=== PATIENT | male | born 1970 | race Caucasian/White ===

== ENCOUNTER 2021-12-25 10:05 | Emergency (ER) | payer OTHER, SELFPAY ==
[2021-12-25 10:17] VITALS: BP 123/81; PULSE 61; RESP 16; TEMP 36.7; O2SAT 97
--- NOTE | 2021-12-25 10:31 | ED.GENADULT ---
HPI - General Adult General Chief complaint: Extremity Problem,Nontraumatic Stated complaint: Rt Foot infection,Rt Ear Irritation Source: patient Mode of arrival: ambulatory Limitations: no limitations History of Present Illness HPI narrative: Patient is a 51-year-old male who presents to the [facility] via POV for evaluation of a skin problem located on right fourth toe that began 2 days ago. Additionally, he reports swelling, erythema, warmth, tenderness, and drainage. He states he was able to squeeze out green pus from affected toe. He cut his toenails 3 days ago and believes this to be the cause of his symptoms. He also reports right ear pain that has been present for 3 days. Denies taking OTC meds for all symptoms. Does not identify alleviating/aggravating factors. History of MRSA. Related Data Allergies Allergy/AdvReac Type Severity Reaction Status Date / Time No Known Allergies Allergy Verified 12/25/21 10:16 Review of Systems Review of Systems: Denies fever, chills, sweats, change in appetite, poor p.o. intake, malaise, headache, rhinorrhea, sinus problems, tinnitus, vertigo, lightheadedness, hearing loss, muffled hearing, ear drainage, nausea, vomiting, sore throat, cough, shortness of breath, lymphadenopathy, paresthesias, cyanosis, decreased range of motion, loss of sensation, chest pain, heart palpitations, and heart murmur. [facility] Family History Family History Other Carcinoma of colon Diabetes mellitus Family history of malignant neoplasm of breast in first degree relative Social History Social History Smoking status: Never smoker Alcohol intake: never Comments I have reviewed and agree with the patient's past medical, surgical, social, and family hx as documented by the RN. There is no relevant family history pertinent to the presenting complaint. Exam Narrative: GENERAL: Well-appearing, well-nourished, and in no acute distress. HEAD: Normocephalic, atraumatic. No sinus tenderness or facial swelling appreciated. EYES: PERRLA and EOMI. No evidence of erythema, swelling, or drainage. ENT: Right ear canal with moderate erythema and mild swelling consistent with otitis externa. Left external ear canal normal. Bilateral TMs are normal.No TM perforation. Nares clear, no rhinorrhea or epistaxis. Bilateral turbinates without erythema/ swelling. Mucous membranes moist and pink. Uvula is midline without erythema and swelling. No evidence of cobblestoning, erythema, swelling, exudates, peritonsillar abscess, tenting, or drooling. Breath odor and voice normal. NECK: Supple. No Lymphadenopathy or nuchal rigidity appreciated. CHEST: Bilateral lung pollard are clear to auscultation. No respiratory distress. No evidence of cough or pleuritic cp upon examination. HEART: Regular rate and rhythm. No murmur, gallop, or rub heard. EXTREMITIES: Normal range of motion. Sensation intact. no edema. SKIN: Warm, dry. Mild cellulitis noted to fourth right toe. No evidence of abscess, streaking, induration, injury, bleeding, or drainage. NEURO: No focal deficits. Alert and oriented x3. Course Course Level of Care: Express Care Visit Vital Signs Vital signs: Vital Signs Temperature 98.0 F 12/25/21 10:17 Pulse Rate 61 12/25/21 10:17 Respiratory Rate 16 12/25/21 10:17 Blood Pressure 123/81 12/25/21 10:17 Pulse Oximetry 97 12/25/21 10:17 Temperature 98.0 F 12/25/21 10:17 Pulse Rate 61 12/25/21 10:17 Respiratory Rate 16 12/25/21 10:17 Blood Pressure 123/81 12/25/21 10:17 Pulse Oximetry 97 12/25/21 10:17 reviewed Medical Decision Making Differential Diagnosis Differential Diagnosis: Otitis externa, barotrauma, eustachian tube dysfunction, AOM, OME, herpes zoster infection, acute mastoiditis, malignancy, contact/allergic dermatitis, atopic dermatitis, psoriasi
== END 2021-12-25 10:50 | disposition home or self-care (01) ==
PROVIDERS: Emergency Provider Nurse Practitioner Family
DX: L03.031 Cellulitis of right toe (principal); H60.501 Unspecified acute noninfective otitis externa, right ear
CPT/HCPCS: 99213; G0463

== ENCOUNTER 2022-07-13 10:20 | Emergency (ER) | payer OTHER, SELFPAY ==
[2022-07-13 11:28] VITALS: BP 128/79; PULSE 66; RESP 16; TEMP 36.8; O2SAT 99
--- NOTE | 2022-07-13 12:11 | ED.URI ---
HPI - URI/Sore Throat General Chief Complaint: Upper Respiratory Infection Stated Complaint: cough,headache Time Seen by Provider: 07/13/22 12:12 Source: patient Mode of arrival: ambulatory Limitations: no limitations History of Present Illness HPI Narrative: 51-year-old male presents with complaint of nasal congestion, postnasal drainage, cough and sore throat. Reports that cough is worse at night. Sore throat is worse in the morning. Not taking any [id number] medications to treat her symptoms symptoms. Has had symptoms for 2-3 days. Afebrile. Wants COVID test prior to returning to work. All systems reviewed and negative except as noted above. Related Data Home Medications Medication Instructions Recorded Confirmed No Home Medications 07/13/22 07/13/22 Allergies Allergy/AdvReac Type Severity Reaction Status Date / Time No Known Allergies Allergy Verified 07/13/22 12:10 Review of Systems Review of Systems: CONSTITUTIONAL: Denies fever, chills, or sweats. EYES: Denies visual changes, redness, or discharge. ENT: Reports rhinorrhea, congestion, sore throat. Denies otalgia. CARDIOVASCULAR: Denies chest pain, palpitations, or edema. RESPIRATORY: reports cough. Denies dyspnea. GASTROINTESTINAL: Denies abdominal pain, nausea, vomiting, or diarrhea. GENITOURINARY: Denies dysuria or hematuria. SKIN: Denies rash or itching. MUSCULOSKELETAL: Denies back pain, joint pain, or myalgia. NEUROLOGIC: Denies headache, numbness, or weakness. PSYCHIATRIC: Denies anxiety or depression. All other systems reviewed are negative, except as documented in HPI. [facility] Family History Family History Other Carcinoma of colon Diabetes mellitus Family history of malignant neoplasm of breast in first degree relative Social History Social History Smoking status: Never smoker Alcohol intake: never Comments At time of signature, agree with nursing past medical, surgical, social and family history. There is no relevant family history pertinent to the presenting complaint. Exam Narrative: GENERAL: This is a well-nourished, well-developed patient, in no apparent distress. HEAD: normocephalic, atraumatic. EYES: PERRL. Sclera clear/white. Vision is grossly intact. EARS: External ears normal, auditory canals clear and without drainage, TMs normal without perforation. Hearing grossly intact. NOSE: External nose normal with clear nasal drainage, mild congestion. THROAT: Mucous membranes moist, Mild erythema to posterior pharynx with clear postnasal drainage. NECK: Neck supple, non-tender without lymphadenopathy, masses or thyromegaly. CARDIOVASCULAR: Regular rate and rhythm without murmurs, gallops, or rubs. RESPIRATORY: Clear to auscultation. Breath sounds equal bilaterally. No wheezes, rales, or rhonchi. GASTROINTESTINAL: Abdomen soft, non-tender, nondistended. Bowel sounds are active. No hepato-splenomegaly, or palpable masses. No guarding. SKIN: warm, Dry, intact with no suspicious lesions or rash, good texture and turgor. NEURO: awake, alert, and oriented to person, place and time. There were no obvious focal neurologic abnormalities. EXTREMITIES: No joint tenderness, effusion, or edema noted. Course Course Level of Care: Express Care Visit Vital Signs Vital signs: Vital Signs Temperature 36.8 C 07/13/22 11:28 Pulse Rate 66 07/13/22 11:28 Respiratory Rate 16 07/13/22 11:28 Blood Pressure 128/79 07/13/22 11:28 Pulse Oximetry 99 07/13/22 11:28 Oxygen Delivery Room Air 07/13/22 11:28 Temperature 36.8 C 07/13/22 11:28 Pulse Rate 66 07/13/22 11:28 Respiratory Rate 16 07/13/22 11:28 Blood Pressure 128/79 07/13/22 11:28 Pulse Oximetry 99 07/13/22 11:28 Oxygen Delivery Room Air 07/13/22 11:28 Reviewed MDM - URI/Sore Throat MDM Narrative Medic
== END 2022-07-13 12:25 | disposition home or self-care (01) ==
PROVIDERS: Emergency Provider Nurse Practitioner Family
DX: J01.90 Acute sinusitis, unspecified (principal); B97.89 Other viral agents as the cause of diseases classified elsewhere; Z20.822 Contact with and (suspected) exposure to COVID-19
CPT/HCPCS: 87081; 87426; 87880; 99213; C9803; G0463

== ENCOUNTER 2023-05-03 10:04 | Emergency (ER) | payer OTHER, SELFPAY ==
--- NOTE | ~2023-05-03 | US_ITS ---
EXAMINATION: US venous doppler [facility] DATE: 05/03/2023 12:52 INDICATION: Left lower limb pain and swelling. TECHNIQUE: Grayscale ultrasound images without and with compression and Doppler ultrasound images of the left lower extremity veins were obtained. COMPARISON: None. FINDINGS: The visualized portions of left common femoral vein, profunda (deep) femoral vein, femoral vein, and greater saphenous vein outflow are patent. There is thrombus in left popliteal and posterior tibial v eins. IMPRESSION: 1. Deep vein thrombosis involving left popliteal and posterior tibial veins. Reviewed, dictated and finalized at location A.
[2023-05-03 10:08] VITALS: BP 121/72; PULSE 70; RESP 18; TEMP 36.5; O2SAT 96
--- NOTE | 2023-05-03 11:50 | ED.LOWEXIN ---
HPI - Extremity Injury (Lower) General Chief Complaint: Extremity Injury, Lower Stated Complaint: Left Leg pain/swelling Time Seen by Provider: 05/03/23 11:00 Source: patient Mode of arrival: ambulatory Limitations: no limitations History of Present Illness HPI Narrative: This is a 52 year old male that presents to the ER for left leg pain and swelling. Ongoing over the last 5 days. Reports some redness to the lower leg and calf pain. No recent injuries, trauma, or surgery. He does have history of chronic low back pain for which he receives injections. No history of blood clots. Reports some chills last night. Denies fever, chest pain or shortness of breath. Related Data Allergies Allergy/AdvReac Type Severity Reaction Status Date / Time No Known Allergies Allergy Verified 05/03/23 10:50 Review of Systems Review of Systems: CONSTITUTIONAL: Denies fever CARDIOVASCULAR: Reports edema. Denies chest pain RESPIRATORY: Denies dyspnea. SKIN: Reports redness MUSCULOSKELETAL: Reports back pain, joint pain, and myalgia. NEUROLOGIC: Denies numbness, or weakness. All systems reviewed & are unremarkable except as noted in HPI and below PMFSH Past Medical History Medical History (Updated 05/03/23 @ 14:10 by Kia Maloney PA-C) No active medical problems Family History Family History Other Carcinoma of colon Diabetes mellitus Family history of malignant neoplasm of breast in first degree relative Social History Social History (Updated 05/03/23 @ 11:56 by Kia Maloney PA-C) Smoking status: Never smoker Alcohol intake: never Substance use: never Exam Narrative: GENERAL: Well-appearing, well-nourished, and in no acute distress. HEAD: Normocephalic, atraumatic. EYES: EOMI. CHEST: Clear to auscultation. No respiratory distress. No wheezes rales or rhonchi HEART: Regular rate and rhythm. No murmur heard. Normal peripheral pulses. BACK: No midline spinal tenderness EXTREMITIES: Normal range of motion. No edema. Strength equal in bilateral upper and lower extremities (5/5). Mild non-pitting edema to the left lower extremity. Normal DP pulses. Normal sensation SKIN: Warm, dry, no rash. NEURO: No focal deficits. Alert and oriented x3. PSYCH: Normal mood and affect Course Course Emergency Course: Patient and family updated on work-up and agree with plan of care Vital Signs Vital signs: Vital Signs Temperature 97.7 F 05/03/23 10:08 Pulse Rate 70 05/03/23 10:08 Respiratory Rate 18 05/03/23 10:08 Blood Pressure 121/72 05/03/23 10:08 Pulse Oximetry 96 05/03/23 10:08 Oxygen Delivery Room Air 05/03/23 10:08 Temperature 97.7 F 05/03/23 10:08 Pulse Rate 70 05/03/23 10:08 Respiratory Rate 18 05/03/23 10:08 Blood Pressure 121/72 05/03/23 10:08 Pulse Oximetry 96 05/03/23 10:08 Oxygen Delivery Room Air 05/03/23 10:08 MDM - Extremity Injury (Lower) MDM Narrative Medical decision making narrative: Patient presents to the emergency department for left leg pain and swelling. Ongoing over the last couple of days. He is afebrile and nontoxic-appearing. He denies any chest pain or shortness of breath. He is not tachycardic. Oxygen saturation is normal on room air. CBC is without leukocytosis. Sed rate is not elevated. CRP mildly elevated. Left lower extremity venous Doppler shows DVT in the left popliteal and posterior tibial veins. Patient and family updated on work-up. He will be started on anticoagulation. He is to follow-up with his primary provider. He was given warnings to return to the ER Differential Diagnosis Differential diagnosis: Likely other (DVT, cellulitis) Lab Data Attestation: I reviewed the patient's lab results. 05/03/23 12:06 05/03/23 12:06 Labs: Lab Results 05/03/23 05/03/23 Range/Units 12:06 12:11 WBC 7.5 (4.5-10.0) K/mm3 RBC 5.3
[2023-05-03 12:18] LABS: Basophils Absolute Auto 0.1 K/mm3 (0.0-0.1); Basophils Percent Auto 0.7 % (0.2-1.2); Eosinophils Absolute Auto 0.2 K/mm3 (0-0.3); Eosinophils Percent Auto 2.4 % (0-4.4); Hemoglobin 15.8 g/dL (14.0-18.0); Immature Granulocyte Absolute 0.01 K/mm3 (0.00-0.031); Immature Granulocyte Percent A 0.1 % (0-0.5); Lymphocytes Percent Auto 16.1 % (18.3-44.2); Mean Corpuscular HGB Conc 33.6 g/dl (32-36); Mean Corpuscular Hemoglobin 29.5 pg (26-34); Mean Corpuscular Volume 87.7 fl (80-100); Mean Platelet Volume 10.1 fl (7.4-10.4); Monocytes Absolute Auto 0.7 K/mm3 (0.1-0.6); Monocytes Percent Auto 8.7 % (2.6-8.5); Neutrophils Absolute Auto 5.4 K/mm3 (1.3-6.7); Platelet Count Result 215 k/mm3 (150-375); Red Blood Count 5.36 M/mm3 (4.6-6.20); Red Cell Distribution Width 12.2 % (11.5-14.5); White Blood Count 7.5 K/mm3 (4.5-10.0)
[2023-05-03 12:27] LABS: Prothrombin Time 13.6 Seconds (11.1-14.7)
[2023-05-03 12:28] LABS: Partial Thromboplastin Time 30.2 SECONDS (22.3-36.8)
[2023-05-03 12:34] LABS: Anion Gap 8 mmol/L (8-16); Blood Urea Nitrogen 18 mg/dL (9-20); CRP 2.5 mg/dL (<1.0); Calcium 9.3 mg/dL (8.4-10.2); Carbon Dioxide 26 mmol/L (22-30); Chloride 105 mmol/L (98-107); Estimated CRCL calculation 81 ml/min; Estimated Glomerular Filt Rate > 60; Glucose 98 mg/dL (65-110); Potassium 4.3 mmol/L (3.4-5.0); Sodium 139 mmol/L (137-145)
[2023-05-03 12:50] LABS: Erythrocyte Sedimentation Rate 19 mm/hr (0-20)
[2023-05-03] MEDS: HYDROcodone/acetaminophen (*CRX) 5-325 MG TABLET 1 TAB PO (13:57)
[2023-05-03 14:18] VITALS: PULSE 72; RESP 18; O2SAT 98
== END 2023-05-03 14:19 | disposition home or self-care (01) ==
PROVIDERS: Emergency Provider Physician Assistant
DX: I82.432 Acute embolism and thrombosis of left popliteal vein (principal); I82.442 Acute embolism and thrombosis of left tibial vein
CPT/HCPCS: 36415; 80048; 85025; 85610; 85652; 85730; 86140; 93971; 99284; A9270

== ENCOUNTER 2023-07-16 12:29 | Emergency (ER) | payer OTHER, SELFPAY ==
--- NOTE | ~2023-07-16 | XR_ITS ---
EXAMINATION: XR lumbar spine min 4V DATE: 07/16/2023 13:24 INDICATION: Low back pain TECHNIQUE: Anteroposterior and lateral views of the lumbar spine, and cone-down lateral view of the l umbosacral junction were obtained. COMPARISON: None. FINDINGS: There are 3 mm of retrolisthesis of L5 on S1. The vertebral body heights are maintained. Th ere is severe loss of intervertebral disc space height at L3-4, L4-5, and L5-S1. There is mild loss o f disc space height at L1-2 and L2-3. Small degenerative osteophytes project from the anterior endpla evelyn of multiple vertebral bodies. There is mild facet joint osteoarthritis of the lower lumbar spine. IMPRESSION: 1. Moderate to severe lumbar spondylosis from L3-4 through L5-S1. Reviewed, dictated and finalized at location A. PER CUTTER
--- NOTE | ~2023-07-16 | XR_ITS ---
EXAMINATION: XR thoracic spine 3V DATE: 07/16/2023 13:24 INDICATION: Chronic back pain TECHNIQUE: AP, lateral and lateral swimmer's views of the thoracic spine were obtained. COMPARISON: None. FINDINGS: Bone alignment is normal. There is no fracture. There is moderate loss of intervertebral di sc space height at multiple levels in the thoracic spine. Small degenerative osteophytes project from the anterior endplates of multiple vertebral bodies. IMPRESSION: 1. Mild thoracic spondylosis without acute findings. Reviewed, dictated and finalized at location A. CORE ASSEMBLER
[2023-07-16 12:37] VITALS: BP 118/82; PULSE 50; RESP 18; TEMP 36.3; O2SAT 100
--- NOTE | 2023-07-16 13:09 | ED.BACK ---
HPI - Back Pain/Injury General Chief Complaint: Back Pain/Injury Stated Complaint: Back Pain Time Seen by Provider: 07/16/23 12:32 Source: patient Mode of arrival: ambulatory Limitations: no limitations History of Present Illness HPI Narrative: 52-year-old male presents to [facility] complains of mid and lower back pains for the past 3-4 days. Patient denies recent injury but reports that he has been doing a large amount of strenuous work at his job. Patient reports that he has been taking leftover Tylenol codeine with minimal relief. Patient reports that he was placed on Eliquis on May 03 after having a blood clot to his left lower leg. Patient reports he has a long history of back pain. Reports that he has done physical therapy in the past. Patient reports that he also sees a chiropractor but has not seen him since this exacerbation of pain. Patient reports that he is seeing pain management at the [place]. Patient reports that he has also been using [id number] rubs with little relief. Patient denies bowel or bladder problems. Patient denies fever, body aches, chills, nausea vomiting or diarrhea. Patient reports that he has Tizanidine at the home has not been taking medication and reports that he is almost out of the medication MD elicited complaint: back pain Pertinent past history: prior back pain Onset (ago): day(s) (3) Similar Symptoms Previously: Yes Location: lumbar spine and thoracic spine Associated symptoms: denies other symptoms Treatments prior to arrival: acetaminophen Related Data Allergies Allergy/AdvReac Type Severity Reaction Status Date / Time No Known Allergies Allergy Verified 07/16/23 12:48 Review of Systems Constitutional: Constitutional: Denies chills, Denies fatigue, Denies fever(s) and Denies weakness ENT: Denies vertigo, Denies dizziness, Denies epistaxis and Denies nasal congestion Cardiovascular: Cardiovascular: Denies chest pain Respiratory: Respiratory: Denies cough, Denies dyspnea and Denies wheezing Gastrointestinal: Gastrointestinal: Denies diarrhea, Denies nausea and Denies vomiting Musculoskeletal: Musculoskeletal: Reports back pain, Denies myalgias, Denies arthralgias and Denies joint swelling Integumentary/Breasts: Skin/Breast: Denies rash Neurologic: Denies dizziness, Denies syncope and Denies headache(s) [facility] Past Medical History Medical History No active medical problems Family History Family History Other Carcinoma of colon Diabetes mellitus Family history of malignant neoplasm of breast in first degree relative Social History Social History Smoking status: Never smoker Alcohol intake: never Substance use: never Comments At time of signature, I agree with nursing past medical, surgical, social and family history. There is no relevant family history pertinent to the presenting complaint. Exam Const: General: healthy appearing and no acute distress Nutritional Appearance: well nourished Orientation/consciousness: patient oriented x3 Limitations: no limitations HENMT: Head: normal to inspection Eyes: Conjunctivae: conjunctivae normal Neck: Neck: normal visual inspection Resp: Effort & Inspection: normal respiratory effort and not labored Auscultation: clear to auscultation bilaterally, no crackles, no rales and no rhonchi Cardio: Rate: regular rate Rhythm: regular rhythm Heart sounds: no murmurs Back/Spine/Pelvis: Back: no CVA tenderness Other: No areas of swelling, erythema, bruising or signs infection noted. No rash noted. Full range of motion noted. Gait is within normal limits. No footdrop noted Skin: General skin exam: normal color Rashes: no rashes Neuro: General: patient oriented x3, moves all extremities, no meningeal signs and no focal motor defic
== END 2023-07-16 13:54 | disposition home or self-care (01) ==
PROVIDERS: Emergency Provider Nurse Practitioner Family
DX: M54.6 Pain in thoracic spine (principal)
CPT/HCPCS: 72072; 72110; 99213; G0463

== ENCOUNTER 2024-09-12 23:38 | Emergency (ER) | payer OTHER, SELFPAY ==
--- NOTE | ~2024-09-12 | XR_ITS ---
CHEST RADIOGRAPH CLINICAL HISTORY: infection . COMPARISON: 06/13/2017 TECHNIQUE: Single portable view of the chest. FINDINGS The cardiomediastinal silhouette is unremarkable. The lungs are clear. Visualized osseous structures and soft tissues are unremarkable. IMPRESSION: No focal infiltrate or effusion. Reviewed, dictated and finalized at location A. ATING SCREEN OPERATOR
[2024-09-12 23:37] VITALS: BP 106/50; PULSE 65; RESP 15; TEMP 36.4; O2SAT 98
[2024-09-13] MEDS: SODIUM CHLORIDE 0.9% IV 1,000 ML 999 ML IV CONT ×2 (00:05→02:15)
[2024-09-13] MEDS: ACETAMINOPHEN 500 MG TABLET 1000 MG PO (00:08)
[2024-09-13 00:09] LABS: Basophils Absolute Auto 0.1 K/mm3 (0.0-0.1); Basophils Percent Auto 0.9 % (0.2-1.2); Eosinophils Absolute Auto 0.3 K/mm3 (0-0.3); Eosinophils Percent Auto 3.7 % (0-4.4); Hematocrit 43.2 % (42.0-52.0); Hemoglobin 15.1 g/dL (14.0-18.0); Immature Granulocyte Absolute 0.03 K/mm3 (0.00-0.031); Immature Granulocyte Percent A 0.4 % (0-0.5); Lymphocytes Absolute Auto 2.61 K/mm3 (0.9-3.2); Lymphocytes Percent Auto 31.8 % (18.3-44.2); Mean Corpuscular Volume 85.9 fl (80-100); Mean Platelet Volume 10.3 fl (7.4-10.4); Monocytes Absolute Auto 0.7 K/mm3 (0.1-0.6); Monocytes Percent Auto 8.8 % (2.6-8.5); Neutrophils Absolute Auto 4.5 K/mm3 (1.3-6.7); Neutrophils Percent Auto 54.4 % (45.5-73.1); Platelet Count Result 274 k/mm3 (150-375); Red Blood Count 5.03 M/mm3 (4.6-6.20); Red Cell Distribution Width 12.3 % (11.5-14.5); White Blood Count 8.2 K/mm3 (4.5-10.0)
--- NOTE | 2024-09-13 00:12 | ED_ITS ---
HPI - Arrhythmia/Palpitations General Chief Complaint: Arrhythmia/Palpitations Stated Complaint: palpations Time Seen by Provider: 09/12/24 23:42 History of Present Illness HPI narrative: Patient is a 53-year-old male who presents to the emergency department this evening complaining of chest pain, nausea, vomiting, diarrhea and headache which started this evening around 2300. Patient also complains of palpitations. Patient states that he has a history of frequent PVCs and was supposed to be wearing an event monitor that his music industry intern out of [facility] placed him on, however, patient took it off and sent it back to the music industry intern a few days ago after wearing it for approximately 10-14 days because it was uncomfortable to wear per who is present at bedside with the patient. Patient has had a long history of recurrent PVCs and was placed on metoprolol for it, however, patient is septic and metoprolol 1 month ago as it was dropping his blood pressure and heart rate. Patient states that his heart rate usually runs in the 50s and has always been that way. States that all his symptoms started this evening and prior to this denies any recent illness and states that he was feeling just fine. Patient was administered 4 mg of IV Zofran by EMS prior to arrival, however, patient states that he still nauseous. Patient has not had any vomiting episodes for EMS and in the emergency department. Denies any abdominal pain. Denies any recent falls or trauma. No additional symptoms or concerns at this time. Related Data Allergies Allergy/AdvReac Type Severity Reaction Status Date / Time No Known Allergies Allergy Verified 07/16/23 12:48 Review of Systems 2 Review of Systems: All systems are reviewed and are negative unless stated otherwise in the HPI. [facility] Past Medical History Medical History No active medical problems Family History Family History Other Carcinoma of colon Diabetes mellitus Family history of malignant neoplasm of breast in first degree relative Social History Social History Smoking status: Never smoker Alcohol intake: never Substance use: never Exam 2 Narrative: General: Alert, awake, afebrile, in no acute distress. HEENT: PERRL, no rhinorrhea, no post nasal drip, oropharynx clear. Neck: Trachea midline, no JVD, no lymphadenopathy. Cardiovascular: Regular rate and rhythm, no murmurs, rubs or gallops, no peripheral edema. Respiratory: Clear to auscultation bilaterally, no tachypnea, no wheezing, no rhonchi, no rubs, no respiratory distress. Abdomen: Soft, nontender, nondistended, no rebound, no guarding, no peritoneal signs. Musculoskeletal: No joint swelling or deformity, normal muscle tone. Skin: No rashes or petechia, no signs of infection. Psychiatric: Alert and oriented, normal behavior and judgment for situation. Neurological: Alert and oriented to person, place, and time. Follows all commands. No focal deficits, speech is clear and fluent. Course Vital Signs Vital signs: Vital Signs Temperature 97.5 F L 09/12/24 23:37 Pulse Rate 65 09/12/24 23:37 Respiratory Rate 15 09/12/24 23:37 Blood Pressure 106/50 L 09/12/24 23:37 Pulse Oximetry 98 09/12/24 23:37 Oxygen Delivery Room Air 09/12/24 23:37 Temperature 97.5 F L 09/12/24 23:37 Pulse Rate 65 09/12/24 23:37 Respiratory Rate 15 09/12/24 23:37 Blood Pressure 106/50 L 09/12/24 23:37 Pulse Oximetry 98 09/12/24 23:37 Oxygen Delivery Room Air 09/12/24 23:37 MDM - Arrhythmia/Palpitations MDM Narrative Medical decision making narrative: The patient was evaluated by myself in the emergency department. History is obtained from patient who is an independent historian and physical exam was performed. External medical records were reviewed at this time. IV was established and pertinent tests were ordered. Patient was administered 2 L IV fluid bolus with normal saline. Patient states that he is still nauseous, however, he declined any additional nausea medications and declined Tylenol for headache. EKG was obtained which revealed sinus bradycardia at a rate of 58 beats per minute, no evidence of heart block, no evidence of acute ischemia. EKG was independently interpreted by me and is currently pending official cardiology read. Laboratory results obtained revealing no acute process. Viral swabs noted to be negative for COVID/influenza/RSV. Two sets of troponins were obtained and both noted to be negative. Imaging studies obtained included CXR which was independently interpreted by me revealing no acute cardiopulmonary process, which is pending final radiology interpretation. Differential diagnosis considerations include acute viral syndrome gastroenteritis, dehydration, electrolyte derangements, arrhythmia. Comorbidities impacting this visit include history of sinus bradycardia and frequent PVCs. I have evaluated and discussed social determinants of health with the patient that could potentially impact subsequent diagnosis and treatment plans. At this time, shared medical decision-making with patient regarding transfer to [facility] or his music industry intern is for his palpitations/frequent PVCs, however, patient declined transferred stating that he wants to go home as he feels better and will follow-up with his music industry intern as an outpatient. On repeat assessment of the patient, reevaluation revealed that the patient is doing well and is in no acute distress. Patient symptoms have improved since he arrived to our emergency department. Repeat vital signs were all reviewed and noted to be stable with a repeat blood pressure 119/51 mmHg. Differential diagnosis and treatment plan were discussed with the patient at bedside. Patient agrees with discussion and after shared medical decision making agrees with discharge. All questions were answered to the patient's satisfaction. Patient will follow up with his music industry intern in 2-3 days. Patient was provided with strict return precautions and instructed to return to the emergency department if any new or worsening symptoms develop. The patient was discharged in stable condition. Lab Data 09/13/24 00:01 09/13/24 00:01 Labs: Lab Results 09/13/24 09/13/24 Range/Units 00:01 01:16 WBC 8.2 (4.5-10.0) K/mm3 RBC 5.03 (4.6-6.20) M/mm3 Hgb 15.1 (14.0-18.0) g/dL Hct 43.2 (42.0-52.0) % MCV 85.9 (80-100) fl MCH 30.0 (26-34) pg MCHC 35.0 (32-36) g/dl RDW 12.3 (11.5-14.5) % Plt Count 274 (150-375) k/mm3 MPV 10.3 (7.4-10.4) fl Immature Gran % (Auto) 0.4 (0-0.5) % Neut % (Auto) 54.4 (45.5-73.1) % Lymph % (Auto) 31.8 (18.3-44.2) % [place] % (Auto) 8.8 H (2.6-8.5) % Eos % (Auto) 3.7 (0-4.4) % Baso % (Auto) 0.9 (0.2-1.2) % Lymph # (Auto) 2.61 (0.9-3.2) K/mm3 [place] # (Auto) 0.7 H (0.1-0.6) K/mm3 Eos # (Auto) 0.3 (0-0.3) K/mm3 Baso # (Auto) 0.1 (0.0-0.1) K/mm3 Abs Immat Gran (auto) 0.03 (0.00-0.031) K/mm3 Absolute Neuts (auto) 4.5 (1.3-6.7) K/mm3 Absolute Nucleated RBC 0.000 (0.0-0.012) K/mm3 Nucleated RBC % 0.0 (0.0-0.2) % PT 15.1 H (11.1-14.7) Seconds INR 1.2 APTT 25.6 (22.3-36.8) Seconds Sodium 139 (137-145) mmol/L Potassium 3.5 (3.4-5.0) mmol/L Chloride 105 (98-107) mmol/L Carbon Dioxide 23 (22-30) mmol/L Anion Gap 11 (4-12) mmol/L BUN 23 H (9-20) mg/dL Creatinine 1.25 (0.7-1.3) mg/dL Estim Creat Clear Calc 72 ml/min Estimated GFR > 60 (59 - ) Glucose 135 H (65-110) mg/dL Calcium 9.3 (8.4-10.2) mg/dL Magnesium 2.2 (1.6-2.3) mg/dL Total Bilirubin 1.1 (0.2-1.3) mg/dL AST 24 (17-59) U/L ALT 35 (6-50) U/L Alkaline Phosphatase 93 (38-126) U/L Troponin I < 0.012 < 0.012 (0.000-0.034) ng/mL Total Protein 7.0 (6.3-8.2) g/dL Albumin 4.3 (3.5-5.1) g/dL Lipase 97 (23-300) U/L Influenza A (RT-PCR) Negative (Negative) Influenza B (RT-PCR) Negative (Negative) RSV (RT-PCR) Negative (Negative) SARS-CoV-2 RNA (RT-PCR) Negative (Negative) Discharge Plan Discharge Clinical Impression: Nausea vomiting and diarrhea, Heart palpitations, Frequent PVCs Patient Disposition: Home, Self-Care Condition: Improved Instructions: Antibiotic Form, Heart Palpitations (ED) Additional Instructions: Please follow-up with your music industry intern within the next 2-3 days. Return to the emergency department if any new or worsening symptoms develop. Patient Language: Irish Prescriptions: No Action tizanidine 2 mg capsule 2 mg PO TID PRN (Reason: muscle spasticity) Qty: 20 0RF Eliquis DVT-PE Treat 30D Start 5 mg (74 tabs) tablets,dose pack See Rx Instructions .ROUTE .COMPLEX Qty: 74 0RF Rx Instructions: orally per package directions Follow-up/Referrals: [facility], [Primary Care Provider] - 2 Days Time of Disposition: 03:10
[2024-09-13 00:19] LABS: Alanine Aminotransferase 35 U/L (6-50); Albumin Level 4.3 g/dL (3.5-5.1); Alkaline Phosphatase 93 U/L (38-126); Anion Gap 11 mmol/L (4-12); Aspartate Amino Transferase 24 U/L (17-59); Bilirubin,Total 1.1 mg/dL (0.2-1.3); Blood Urea Nitrogen 23 mg/dL (9-20); Calcium 9.3 mg/dL (8.4-10.2); Carbon Dioxide 23 mmol/L (22-30); Chloride 105 mmol/L (98-107); Estimated CRCL calculation 72 ml/min; Estimated Glomerular Filt Rate > 60; Glucose 135 mg/dL (65-110); Lipase 97 U/L (23-300); Magnesium 2.2 mg/dL (1.6-2.3); Potassium 3.5 mmol/L (3.4-5.0); Sodium 139 mmol/L (137-145)
[2024-09-13 00:22] LABS: INR 1.2; Prothrombin Time 15.1 Seconds (11.1-14.7)
[2024-09-13 00:23] LABS: Partial Thromboplastin Time 25.6 Seconds (22.3-36.8)
[2024-09-13 00:31] LABS: Troponin I < 0.012 ng/mL (0.000-0.034)
[2024-09-13 00:45] LABS: Influenza A QL RT-PCR Negative (Negative); Influenza B QL RT-PCR Negative (Negative); RSV RNA, RT-PCR Negative (Negative); SARS-CoV-2 RNA PCR Negative (Negative)
[2024-09-13 01:42] LABS: Troponin I < 0.012 ng/mL (0.000-0.034)
[2024-09-13 03:18] VITALS: BP 120/82; PULSE 62; RESP 15; O2SAT 100
== END 2024-09-13 03:20 | disposition home or self-care (01) ==
PROVIDERS: Emergency Provider Emergency Medicine
DX: R00.2 Palpitations (principal); R11.2 Nausea with vomiting, unspecified; R19.7 Diarrhea, unspecified; I49.3 Ventricular premature depolarization; Z20.822 Contact with and (suspected) exposure to COVID-19; Z79.01 Long term (current) use of anticoagulants; R00.1 Bradycardia, unspecified; I45.9 Conduction disorder, unspecified; R94.31 Abnormal electrocardiogram [ECG] [EKG]
CPT/HCPCS: 36415; 71045; 80053; 83690; 83735; 84484; 85025; 85610; 85730; 87637; 93005; 96360; 96361; 99284; A9270; J7030